=== PATIENT | male | born 1960 | race Caucasian/White ===

== ENCOUNTER 2017-06-07 13:31 | Inpatient (IN) ==
--- NOTE | 2017-06-07 13:38 | Pre-Sedation Evaluation ---
Pre-sedation evaluation - Pre-sedation checklist Date of procedure: 06/07/17 Procedure: cardiac cath +/- PCI H&P (including ROS) documented in medical record: Yes Previous reaction to sedatives/anesthetics: No Dietary Status: NPO after Midnight Airway Assessment: Patient can open mouth completely, TMJ function normal Dentition: No loose teeth or bridges Possible difficult airway: No ASA Classification *see protocol: CLASS II-Mild systemic disease Plan of Care: Pt appropriate candidate for procedure/moderate/conscious sedation
--- NOTE | 2017-06-07 13:40 | Cardiology History & Physical ---
Date of Encounter: 06/07/17 Time of Encounter: 13:30 Assessment and Plan (1) CAD (coronary artery disease) Current Visit: Yes Status: Acute The assessment and plan as outlined above was discussed with the patient and/or family members who expressed understanding and agreement. All questions were answered. Patient will continue on long-term aspirin therapy. Patient will be started on statin therapy. We will monitor on telemetry. (2) STEMI (ST elevation myocardial infarction) Current Visit: Yes Status: Acute The assessment and plan as outlined above was discussed with the patient and/or family members who expressed understanding and agreement. All questions were answered. We will proceed with emergent cardiac catheterization and possible percutaneous intervention. We will give patient unfractionated heparin. We have loaded him with Brilinta 180 mg by mouth. We will continue on long-term dual antiplatelet therapy with aspirin and Brilinta. We will check serial troponin levels. Patient will be monitored in the intensive care unit after cardiac catheterization. We will start statin therapy. Patient will continue on long-term LUKE inhibitor therapy. We will consider beta maryellen therapy. Will order echocardiogram. Qualifiers: Involved coronary artery: right coronary artery Qualified Code(s): I21.11 - ST elevation (STEMI) myocardial infarction involving right coronary artery (3) Chest pain Current Visit: Yes Status: Acute Chest pain improve with sublingual nitroglycerin. We will monitor chest pain closely. Qualifiers: Chest pain type: unspecified Qualified Code(s): R07.9 - Chest pain, unspecified (4) Shortness of breath Current Visit: Yes Status: Acute The assessment and plan as outlined above was discussed with the patient and/or family members who expressed understanding and agreement. All questions were answered. History of Present Illness Chief complaint: chest pain HPI: Mr. Madrid is a 56 year old male who presented to the [facility] emergency room with chest pain. This chest pain started at 8 AM this morning. He was rated 7 out of 10 in intensity. Current chest pain rated 2 out of 10 in intensity. He reports associated shortness of breath diaphoresis and chills. He reports tingling in both arms. Patient reports no prior history of chest pain. Electrocardiogram performed at outside hospital (reviewed by me) does show ST segment elevation inferior leads with reciprocal depression in lateral leads. Patient denies any prior cardiac history. Reports no prior cardiac testing. He does have a history of hypertension and takes lisinopril/HCTZ at home. Patient did receive an aspirin and nitroglycerin at the outside hospital. Past Med Surg Social Fam HX - Past Medical History Source: patient Medical history: hypertension Psychiatric history: depression Medications and Allergies 3 Allergy/AdvReac Type Severity Reaction Status Date / Time No Known Allergies Allergy Verified 06/07/17 13:43 All Systems Review: A 10-system review of systems was performed and is negative for pertinent findings except as documented above in the HPI. - Constitutional Constitutional: chills - Cardiovascular Cardiovascular: chest pain at rest, chest pain with exertion, dyspnea at rest, dyspnea on exertion - Psychiatric Psychiatric: depression Physical Examination Blood pressure 143/90. Heart rate 76. Resp rate 17. Afebrile General: Conversant, No Apparent Distress HEENT: Atraumatic, Normocephaly Neck: No JVD Cardiac: Reg Rate and Rhythm Lungs: Normal Breath Sounds, No Wheeze, Rales, Rhonchi Neuro: Alert and responsive, No focal deficits noted Abdomen: Soft Musculoskeletal: No Chest Wall Tenderness Extremities: No Clubbing, No Edema
[2017-06-07] MEDS ORDERED: *HR* FentaNYL (PF) 250 MCG/5 ML VIAL ONE (14:21)
[2017-06-07] MEDS ORDERED: *HR* Midazolam HCl 5 MG/5 ML VIAL IVP ONE (14:21)
[2017-06-07] MEDS ORDERED: *HR* Atropine Sulfate 1 MG/10 ML SYRINGE ONE (14:21)
[2017-06-07] MEDS ORDERED: 0.9 % Sodium Chloride 1,000 ML ONE ×2 (14:23→14:40)
[2017-06-07] MEDS ORDERED: 0.9 % Sodium Chloride 250 ML ONE (14:23)
[2017-06-07] MEDS ORDERED: *HR* Phenylephrine 10 MG/ML VIAL ONE (14:23)
[2017-06-07] MEDS ORDERED: *HR* Ticagrelor 90 MG TABLET ONE (14:26)
[2017-06-07] MEDS ORDERED: Naloxone 0.4 MG/ML INJ IVP PRN (14:30)
[2017-06-07] MEDS ORDERED: Heparin 1,000 UNITS/500 mL NS 500 ML ONE (14:40)
[2017-06-07] MEDS ORDERED: Nitroglycerin 1,000 MCG/10 ML VIAL IV ONE (14:40)
[2017-06-07] MEDS ORDERED: *HR* Heparin 10,000 UNIT/10 ML VIAL ONE (14:40)
[2017-06-07] MEDS ORDERED: Verapamil 5 MG/2 ML VIAL ONE (14:40)
[2017-06-07] MEDS ORDERED: Tirofiban 5 MG/100ML 5 MG/100 ML BAG IV ONE (14:44)
--- NOTE | 2017-06-07 14:46 | Procedure Note ---
Date of procedure: 06/07/17 (PCI/stent mid RCA with 4x20 Synergy KAROL) Pre-op diagnosis: STEMI Post-op diagnosis: same Anesthesia: IV sedation Surgeon: Chadd Crooks Condition: stable Disposition: ICU
[2017-06-07 15:09] LABS: Basophils # 0.1 K/mcL (0.0-0.2); Basophils % 0.6 %; Eosinophils % 0.3 %; Hematocrit 37.7 % (37.5-50.1); Hemoglobin 12.7 g/dL (12.9-16.9); Immature Granulocytes % 1.3 % (0-4); Lymphocytes # 2.2 K/mcL (0.6-4.6); Lymphocytes % 14.4 %; Mean Corpuscular HGB Conc 33.7 g/dL (31.6-35.5); Mean Corpuscular Hemoglobin 33.7 pg (28.0-33.3); Mean Platelet Volume 12.3 fL (9.4-12.4); Monocytes % 6.5 %; Neutrophils # 11.7 K/mcL (1.6-8.9); Nucleated Red Blood Cells 0.5 /100 WBC (0); Platelet Count 187 K/mcL (140-400); Red Blood Count 3.77 M/mcL (4.19-5.50); Red Cell Distribution Width 16.5 % (11.5-14.5); Segmented Neutrophils % 76.9 %
[2017-06-07] MEDS: 0.9 % Sodium Chloride 1,000 ML IVC SCH (15:14)
[2017-06-07 15:26] LABS: Alanine Aminotransferase 26 Units/L (0-55); Albumin 4.2 g/dL (3.5-5.0); Albumin/Globulin Ratio 1.4 (1.1-2.2); Alkaline Phosphatase 72 Units/L (38-126); Aspartate Amino Transferase 71 Units/L (5-34); BUN/Creatinine Ratio 36 (6-26); Bilirubin,Total 1.4 mg/dL (0.2-1.2); Blood Urea Nitrogen 33 mg/dL (8-26); Calcium 9.1 mg/dL (8.6-10.8); Carbon Dioxide 23 mEq/L (19-29); Chloride 104 mEq/L (98-109); Globulin 2.9 g/dL (2.4-3.5); Glucose 154 mg/dL (70-99); Osmolality,Calculated 292 (280-300); Potassium 4.1 mEq/L (3.5-4.5); Sodium 136 mEq/L (136-145); Total Protein 7.1 g/dL (6.0-8.3); eGFR For African Americans > 60 (> 60); eGFR For Non-African Americans > 60 (> 60)
[2017-06-07] MEDS: *HR* Ticagrelor 90 MG TABLET PO SCH (20:42)
[2017-06-08] MEDS ORDERED: *HR* Enoxaparin 40 MG/0.4 ML SYRINGE SQ SCH (06:00)
[2017-06-08 07:52] LABS: Basophils # 0.1 K/mcL (0.0-0.2); Basophils % 0.7 %; Eosinophils # 0.2 K/mcL (0.0-0.6); Eosinophils % 1.4 %; Hematocrit 35.5 % (37.5-50.1); Hemoglobin 11.8 g/dL (12.9-16.9); Immature Granulocytes % 1.1 % (0-4); Lymphocytes # 2.3 K/mcL (0.6-4.6); Lymphocytes % 19.5 %; Mean Corpuscular HGB Conc 33.2 g/dL (31.6-35.5); Mean Corpuscular Hemoglobin 34.4 pg (28.0-33.3); Mean Corpuscular Volume 103.5 fL (83.0-100.0); Mean Platelet Volume 12.4 fL (9.4-12.4); Monocytes # 0.8 K/mcL (0.0-1.3); Monocytes % 6.9 %; Neutrophils # 8.5 K/mcL (1.6-8.9); Nucleated Red Blood Cells 0.7 /100 WBC (0); Platelet Count 173 K/mcL (140-400); Red Blood Count 3.43 M/mcL (4.19-5.50); Red Cell Distribution Width 16.9 % (11.5-14.5); Segmented Neutrophils % 70.4 %
[2017-06-08 07:58] LABS: BUN/Creatinine Ratio 22 (6-26); Carbon Dioxide 28 mEq/L (19-29); Chloride 104 mEq/L (98-109); Glucose 103 mg/dL (70-99); Osmolality,Calculated 290 (280-300); Potassium 3.8 mEq/L (3.5-4.5); Sodium 139 mEq/L (136-145); eGFR For African Americans > 60 (> 60); eGFR For Non-African Americans > 60 (> 60)
[2017-06-08 07:59] LABS: Blood Urea Nitrogen 18 mg/dL (8-26)
[2017-06-08] MEDS: *HR* Ticagrelor 90 MG TABLET PO SCH (08:40)
[2017-06-08] MEDS ORDERED: Aspirin 81 MG TAB.CHEW PO SCH (09:00)
--- NOTE | 2017-06-08 09:07 | Cardiology Progress Note ---
Date of Encounter: 06/08/17 Time of Encounter: 09:05 Assessment and Plan (1) STEMI (ST elevation myocardial infarction) Current Visit: Yes Status: Acute STEMI s/p emergent LHC with PCE KAROL x1 to RCA. Residual stenosis in LAD - staged PCI recommended. Importance of DAPT for a minimum of one year discussed - patient voiced understanding. Increase atorvastatin to 80 mg daily. HR much better today - start low dose BB. Recommend transfer to and increase activity/echocardiogram. Patient demanding to go home. Risks discussed, including worsening condition and cardiac causes of . Recommended he take one week off from work and followup up with us this week. All questions answered. Thanks, Ryan Vyas DO, [facility] Qualifiers: Involved coronary artery: right coronary artery Qualified Code(s): I21.11 - ST elevation (STEMI) myocardial infarction involving right coronary artery (2) CAD (coronary artery disease) Current Visit: Yes Status: Acute T Qualifiers: Coronary Disease-Associated Artery/Lesion type: [place] artery [place] vs. transplanted heart: [place] heart Associated angina: with unstable angina Qualified Code(s): I25.110 - Atherosclerotic heart disease of [place] coronary artery with unstable angina pectoris (3) Presence of drug coated stent in right coronary artery Current Visit: Yes Status: Acute Discussion w patient/family: The assessment and plan as outlined above was discussed with the patient and/or family members who expressed understanding and agreement. All questions were answered. Thank you for involving us in the care of your patient. Please call with any questions. Subjective Principal diagnosis: STEMI Interval history: Patient seen and examined. Reports he did well overnight. No chest pain reported. Demanding to go home. Tolerating medications - denies any obvious side effects. Objective Vital Signs, Last 4 Hours Pulse Resp BP Pulse Ox 06/08/17 08:00 78 15 97/56 90 06/08/17 07:00 81 16 127/89 90 06/08/17 06:00 75 16 97/54 89 General: Conversant, No Apparent Distress HEENT: Atraumatic, Normocephaly, Mucus Membranes Moist Neck: No JVD, Normal carotid pulses Cardiac: Reg Rate and Rhythm, Normal S1 and S2, No Murmur Lungs: Normal Breath Sounds, No Wheeze, Rales, Rhonchi Neuro: Alert and responsive, No focal deficits noted Abdomen: Soft, Non-Tender Skin: No rashes noted on visualized skin Musculoskeletal: No Chest Wall Tenderness Extremities: No Clubbing, No Cyanosis, No Edema Results 06/08/17 06:50 06/08/17 06:50 Lab Results 06/07/17 06/07/17 06/07/17 14:55 14:55 14:55 WBC 15.2 H Hgb 12.7 L Hct 37.7 Plt Count 187 Sodium 136 Potassium 4.1 Chloride 104 Carbon Dioxide 23 BUN 33 H Creatinine 0.92 Glucose 154 H Calcium 9.1 Total Bilirubin 1.4 H AST 71 H ALT 26 Alkaline Phosphatase 72 Troponin I 8.30 H* 06/07/17 06/07/17 06/08/17 18:50 22:32 06:50 WBC 12.0 H Hgb 11.8 L Hct 35.5 L Plt Count 173 Sodium Potassium Chloride Carbon Dioxide BUN Creatinine Glucose Calcium Total Bilirubin AST ALT Alkaline Phosphatase Troponin I > 50.00 H* > 50.00 H* 06/08/17 06:50 WBC Hgb Hct Plt Count Sodium 139 Potassium 3.8 Chloride 104 Carbon Dioxide 28 BUN 18 D Creatinine 0.82 Glucose 103 H Calcium 9.0 Total Bilirubin AST ALT Alkaline Phosphatase Troponin I - Imaging and Cardiology Cardiac cath: report reviewed - EKG Interpretation EKG results cardiology: personally reviewed Consult Discharge Plan - Plan Referrals: [facility] [Primary Care Provider] -
[2017-06-08] MEDS ORDERED: Metoprolol XL (24 HR) Succ 25 MG TAB.ER.24H PO SCH (09:15)
--- NOTE | 2017-06-08 09:29 | Discharge Summary ---
Date of Encounter: 06/08/17 Time of Encounter: 09:27 - Discharge Diagnosis (1) STEMI (ST elevation myocardial infarction) Priority: Primary Status: Acute Comments: STEMI presentation with emergentt C with KAROL to RCA. - Discharge Medications Prescriptions: Atorvastatin [Lipitor] 80 mg PO HS #30 tab Metoprolol XL (24 HR) Succ [Toprol Xl] 25 mg PO DAILY #30 tab Ticagrelor [Brilinta] 90 mg PO BID #30 tab Home Medications: Escitalopram [Lexapro] 20 mg PO DAILY 06/07/17 [History] Aspirin 81 mg PO DAILY 06/08/17 [Rx] Atorvastatin [Lipitor] 80 mg PO HS #30 tab 06/08/17 [Rx] Metoprolol XL (24 HR) Succ [Toprol Xl] 25 mg PO DAILY #30 tab 06/08/17 [Rx] Ticagrelor [Brilinta] 90 mg PO BID #30 tab 06/08/17 [Rx] Allergies/Adverse Reactions: 3 Allergy/AdvReac Type Severity Reaction Status Date / Time No Known Allergies Allergy Verified 06/07/17 13:43 Procedures/tests Complete & Pending: Procedures Performed prior 72 hours Category Date Time Status CL Cardiac Catheterization [CL] Stat [employer] 06/07/17 13:44 Ordered ECG 12 lead ECG [ECG] Routine Y 06/07/17 14:36 Ordered ECG 12 lead ECG [ECG] Routine Y 06/08/17 07:00 Ordered ECG 12 lead ECG [ECG] Stat Y 06/07/17 14:36 Ordered EV echocardiogram Routine Y 06/07/17 14:36 Ordered Date of admission: 06/07/17 14:14 Primary care physician: [facility] Consults: 06/07/17 14:36 Consult to Cardiac Rehabilitation-Phase1 [CONS] Routine Comment: Reason for Consult: AMI Call Completed: Yes Consult to Nurse Navigator [CONS] Routine Comment: 06/07/17 14:38 Consult to Cardiac Rehabilitation-Phase1 [CONS] Routine Comment: Reason for Consult: post op cath Call Completed: Yes Discharging clinician: Beth Monzon Anticipated date of discharge: 06/08/17 - Patient Status Disposition: Home, Self-Care Condition: Fair Functional capacity at discharge: independent ambulation Overall status at discharge: patient is progressing back to baseline - Discharge Instructions Follow Up With: [facility] [Primary Care Provider] - Additional Instructions: RISK FACTORS: STOP SMOKING: If you smoke, STOP. Smoking or tobacco use significantly increases your risk of heart disease because nicotine causes the arteries to narrow or constrict. It also causes fats to stick to the artery. Your chances of having a heart attack are greatly increased if you continue to smoke. For more information, call the education line for smoking cessation 4-512-GESQTXD EAT A LOW FAT/CHOLESTEROL/SODIUM DIET: This diet may help reduce your chances of having a heart attack. LIFTING: With affected extremity: Avoid bending, pushing off and lifting more than 2 pounds for 24 hours The following 48 hours, avoid lifting anything more than 5 pounds Avoid strenuous activity or repetitive motions ACTIVITY: You may walk or climb stairs as tolerated You can resume sexual activity as tolerated In general, you are encouraged to engage in a minimum of 30 minutes or more of moderate intensity physical activity, such as brisk walking, daily or at least 3 -4 times weekly BATHING Do not submerge the site into water (bath tub, hot tub, swimming pool, dishes) for 1 week. This can be a source for infection into the blood stream. You may shower after 24 hours SITE CARE: After 24 hours, you may remove the dressing and leave the site open to air. Keep the site clean and dry. Clean gently and pat dry. You can expect bruising and tenderness that gradually resolve within a week or two. Return to work as instructed per your physician Resume driving as instructed per physician Keep all scheduled follow up appointments Resume medications as instructed IMPORTANT: If prescribed a Platelet Aggregation Inhibitor such as, Plavix, Brilinta or Effient: Duration of therapy is minimum one year These medications are often used in combination with Aspirin in prevention of future heart attacks Never discontinue unless consult with your Motor Setter STROKE (CVA) Risk factors for a stroke are: Age, cigarette smoking, diabetes, excessive alcohol consumption, family history, high blood pressure, overweight, physical inactivity, prior stroke, heart attack, diagnosis of carotid artery stenosis or other artery disease. Warning signs: Sudden numbness or weakness of the face, arm or leg; especially on one side of the body, sudden confusion, trouble speaking or understanding, sudden trouble seeing in one or both eyes, sudden trouble walking, dizziness, loss of balance or coordination, sudden severe headache with no cause. Call 911 or go to the Emergency Room. CONGESTIVE HEART FAILURE: If you have been diagnosed with Congestive Heart Failure (CHF) and your symptoms return, make an appointment with your physician Weigh yourself daily. Notify your physician if you have a weight gain of two or more pounds in one day or five or more pounds in one week. If you experience any difficulty breathing, please call 911 BLEEDING: Although the risk of bleeding is minimal, it can happen. If you have any bleeding from the site, apply firm pressure above the puncture site for 10-15 minutes. If the bleeding does not stop, continue manual pressure and call 911 Contact [facility] ( ) if: You develop a fever greater than 101 degrees Fahrenheit Your site becomes reddened or has any drainage You have an increase in pain or burning at the site or if a large knot forms at the site. If you experience chest pain, shortness of breath, dizziness, or extreme tiredness, stop the activity and rest. Please notify [facility] office if you experience any of these symptoms and they are not relieved by rest please call 911! - Diet and Activity Activity: increase activity as tolerated Diet: low fat, low cholesterol, low salt diet - Hospital Course Hospital course: Mr. Madrid is a 56 year old male Who presented to [facility] with chest pain. 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 Patient received drug eluding stent to RCA. Severe LAD disease with recommendatiosn for staged PCI. Patient required temporary dopamine support for BP and HR. BP and HR stable now off dopamine. Patient educated on dual antiplatelet therapy uninterrupted for at least one year. Brilinta card given to pateint. Patient states understanding. On asa, statin, beta maryellen, and brilinta. Patient educated on importance of follow up regarding need for staged PCI and risks of not following up such as [place] or . Patient states understanding. Right radial access site without hematoma or ecchymosis. Right radial access site care education given to patient. Patient's BP 90-100s systolic. Will continue beta maryellen and will stop patient's don inhibitor for now. LVEF 50-55%. Will re -evaluate in outpatient setting regarding addition of don inhibitor. Patient is being discharged today, against our advice. Patient is adament he is going home. Follow up is being scheduled follow up with cardiology clinic. - Time Spent with Patient Total time spent providing and/or coordinating discharge services: Less than 30 minutes Physical Examination Vital Signs, Last 4 Hours Pulse Resp BP Pulse Ox 06/08/17 08:00 78 15 97/56 90 06/08/17 07:00 81 16 127/89 90 06/08/17 06:00 75 16 97/54 89 General: Conversant, No Apparent Distress HEENT: Atraumatic, Normocephaly, Mucus Membranes Moist Neck: No JVD, Normal carotid pulses Cardiac: Reg Rate and Rhythm, Normal S1 and S2, No Murmur Lungs: Normal Breath Sounds, No Wheeze, Rales, Rhonchi Neuro: Alert and responsive, No focal deficits noted Abdomen: Soft, Non-Tender Skin: No rashes noted on visualized skin, Other (Right radial access site without hematoma or ecchymosis. ) Musculoskeletal: No Chest Wall Tenderness Extremities: No Clubbing, No Cyanosis, No Edema, Normal Pulses
[2017-06-08 13:08] VITALS: BP 110/76
[2017-06-08] MEDS: 0.9 % Sodium Chloride 1,000 ML IVC SCH (13:08)
--- NOTE | 2017-06-08 13:17 | Event Note ---
Date of Encounter: 06/08/17 Time of Encounter: 13:15 - Cardiology Event Note Patient educated to call ICU if Brilinta is unaffordable for pateint with his insurance. [employer] G educated to call cardiology if patient reports brilinta is unaffordable. Pateint educated and stressed not to miss any doses of asa or brilinta with the risks of missing medication being [place] or . Pateint states understanding.
--- NOTE | 2017-06-09 08:30 | Invasive Diagnostic Lab Proc ---
Name: Rafy Madrid Date of Study: 06/07/2017 Date: 1960 Ht: 72.0in Medical Record#: [id number] Age: 56 Wt: 238.00lb Gender: Male BSA: 2.29 Order #: [id number] BMI: 32.28 Physicians Procedure Physician: Chadd Crooks MD Referring MD: [facility] Referring MD: Staff Name Position Time In Tabby Stephen RT (R) Scrub Maverick Mathew RN Newspaper Photo Editor Bhavana Bush RN Monitor Indications Indication STEMI Procedures Performed Procedure PRQ CARD REVASC AK 1 VSL L HRT ARTERY/VENTRICLE ANGIO Pre-Procedure Checklist Informed consent is complete signed and on chart. H&P is on chart. ID band is on and ID verified with patient. Patient NPO for procedure The procedure was described for the patient and questions were answered. Blood Pressure: 126/81 ECG is on chart. Rhythm: Sinus Bradycardia Plan of Care Patient will tolerate the procedure without complications. Adequate level of comfort will be maintained. Hemodynamics will remain stable Patient will recover from procedure without complications. Respiratory function will be maintained. Cardiac rhythm will remain stable. Patient temperature will be maintained. Patient and/or family have verbalized understanding of the procedure. Patient Education Chief Complaint/Reason for Test: Cardiac Cath Developmental Category: Adult (18-64 years) Developmentally Appropriate for Age: Yes Learning Barriers: None Education Needs: Procedure Education Method: Verbal Information Taught: Cardiac Cath Educational Evaluation: Able to repeat information Intravenous Access Time IV Size Location DC'd Fluid/Drip Rate Units RN 01:28 PM 20g 1 /" Patent On Arrival Lt Antecubital 0.9NaCl 25 ml/hr Maverick Mathew RN Allergies No Known Allergies Vital Signs Time BP (mmHg) HR (bpm) O2 Sat. RR (bpm) LOC 01:58 PM / % 5 = Fully awake and oriented or at pre-proc level 01:58 PM / % 5 = Fully awake and oriented or at pre-proc level 02:03 PM 85 / 40 74 89 % 20 02:04 PM 88 / 38 70 89 % 18 02:07 PM 79 / 36 70 90 % 17 02:08 PM 75 / 44 81 89 % 17 02:10 PM 81 / 33 75 90 % 18 02:13 PM 84 / 40 74 91 % 18 02:17 PM 78 / 35 74 90 % 41 02:18 PM 72 / 34 74 91 % 13 02:19 PM 76 / 35 76 92 % 19 02:21 PM 78 / 41 73 92 % 18 01:48 PM 126 / 81 87 90 % 18 01:53 PM 132 / 72 79 92 % 19 01:58 PM 142 / 76 82 92 % 17 02:02 PM 74 / 38 50 89 % 26 02:23 PM 80 / 42 71 91 % 18 02:28 PM 85 / 50 72 91 % 24 Procedural Medications Time Medication Dose Units Method Given By 01:50 PM Oxygen 6 L/min nasal cannula Maverick Mathew RN 01:46 PM Lidocaine 2% 10 ml Subcutaneous 01:48 PM Heparin 4000 units Nitroglycerin 200 mcg Verapamil 2.5 mg Intraarterial Chadd crooks 01:44 PM Versed 2 mg Intravenous Maverick Mathew RN 01:44 PM Fentanyl 50 mcg Intravenous Maverick Mathew RN 01:44 PM Brilinta 180 mg Orally Maverick Mathew RN 01:59 PM Heparin 3000 units Intravenous Maverick Mathew RN 02:01 PM Atropine 0.5 mg Intravenous Maverick Mathew RN 02:04 PM Neosynephrine 50 mcg Intravenous Maverick Mathew RN 02:04 PM Aggrastat Bolus: 54 ml Orally Maverick Mathew RN 02:11 PM Neosynephrine 100 mcg Intravenous Maverick Mathew RN 02:14 PM Dopamine 5 mcg/kg/min Intravenous Maevrick Mathew RN 02:22 PM Dopamine 7.5 mcg/kg/min Intravenous Maverick Mathew RN 02:30 PM Dopamine 10 mcg/kg/min Intravenous Maverick Mathew RN ASA Classification: CLASS II- Mild systemic disease (i.e. well-controlled diabetes, hypertension, asthma, cigarette smoking) Rhonda Score Preprocedure Postprocedure Activity 2- Moves 4 extremities sustained head lift Activity 2- Moves 4 extremities sustained head lift Circulation 2- SBP +/= 20 points of pre-anesthetic level Circulation 2- SBP +/= 20 points of pre-anesthetic level Consciousness 2- Awake and alert oriented x 3 Consciousness 2- Awake and alert oriented x 3 O2 Saturation 1- Needs O2 inhalation to maintain O2 saturation of 90% O2 Saturation 1- Needs O2 inhalation to maintain O2 saturation of 90% Respiratory 2- Able to deep breathe and cough well Respiratory 2- Able to deep breathe and cough well Total Score 9 Total Score 9 Contrast Agent: Isovue Diagnostic Contrast: 103 ml Total Contrast: 103 ml Fluoro Dose: 1020 mGy Activated Clotting Time Time Seconds to Clot 01:59 PM 204 Procedure Log Time Note Enter By 01:28 PM Pt arrived to cath laboratory technician 2 at 14:28, no labs available at this time csmith 01:28 PM patient arrived to warehouse general laborer csmith 01:35 PM Time out performed according to hospital policy csmith 01:42 PM Time: 13:42 Oxygen on at 6 L/min per nasal cannula by Maverick Mathew RN csmith :44 PM Time: 13:44 Brilinta 180 mg Orally Given by Maverick Mathew RN csmith :44 PM Time: 13:44 Versed 2 mg Intravenous Given by Maverick Mathew RN csmith :44 PM Time: 13:44 Fentanyl 50 mcg Intravenous Given by Maverick Mathew RN csmith 01:46 PM Time: 13:46 10 ml Lidocaine 2% to right radial Subcutaneous Given by csmith 01:47 PM Access obtained by percutaneous puncture. 6Fr 10cm Terumo Glidesheath sheath placed in right Radial artery. [id number] csmith 01:47 PM Vitals capture started with the following parameters, Patient=Adult, Interval=5 min, Initial Rcihgohv=176 mmHg, Deflation Rate=5 mmHg, Cuff placed on Right Arm 01:47 PM CathStat 01:47 PM [ Start or Stop Vital ] 01:48 PM 5Fr FL 3.5 catheter inserted over the wire DN csmith 01:48 PM Time: 13:48 Patient given 4,000 units Heparin, 200 mcg Nitroglycerin, and 2.5 mg Verapamil Intraarterial by Chadd crooks csmith 01:48 PM HR=87 bpm, HYGA=653/81 mmhg, SpO2=90 %, Resp=18 B/min 01:49 PM Pressure channel 3 zero failed. 01:49 PM Pressure channel 3 zeroed. 01:50 PM Pressure channel 3 zeroed. 01:50 PM Recorded Pressure: LV, HR=93, Condition=Condition 1 (Left Ventricle) LV 114/11/12 01:51 PM Recorded Pressure: LV, Ao, HR=91, Condition=Condition 1 (Left Ventricle) LV 111/11/13, (Aorta) Ao 103/87/95 01:51 PM Catheter selectively placed in left ventricle csmith 01:51 PM catheter pulled back from LV csmith 01:53 PM LCA angiography performed in multiple views. csmith 01:53 PM HR=79 bpm, XOKH=514/72 mmhg, SpO2=92.0 %, Resp=19 B/min, Comment=SR 01:55 PM Catheter removed csmith 01:55 PM 6Fr JR 4 Runway guide catheter was used to cannulate the PCI vessel successfully. reused? No csmith 01:57 PM Recorded Pressure: Ao, HR=77, Condition=Condition 1 (Aorta) Ao 120/80/98 01:58 PM Inflation device was opened. csmith 01:58 PM .014 Kinetix 185cm guide wire across target lesion- successful. reused? No csmith 01:58 PM Time: 13:58 Patient comfortable and pain free: Yes csmith :58 PM Time: 13:58LOC: 5 = Fully awake and oriented or at pre-proc level csmith :58 PM HR=82 bpm, KQXJ=134/76 mmhg, SpO2=92.0 %, Resp=17 B/min, Comment=SR 01:59 PM 2.5 mm x 12 mm Emerge Monorail balloon across target lesion- successful. reused? No csmith :59 PM At 13:59 the ACT was 204 seconds. csmith 01:59 PM Time: 13:59 Heparin 3000 units Intravenous Given by Maverick Mathew RN csmith 02:00 PM Balloon inflated @ 10 digna for 20 seconds csmith 02:01 PM Time: 14:01 Atropine .5 mg Intravenous Given by Maverick Mathew RN csmith 02:01 PM Balloon inflated @ 14 digna for 6 seconds csmith 02:02 PM NIBP STAT measurement started. 02:02 PM HR=50 bpm, NIBP=74/38 mmhg, SpO2=89 %, Resp=26 B/min 02:03 PM HR=74 bpm, NIBP=85/40 mmhg, SpO2=89 %, Resp=20 B/min 02:04 PM Balloon catheter removed intact. csmith 02:04 PM Time: 14:04 Neosynephrine 50 mcg Intravenous Given by Maverick Mathew RN csmith 02:04 PM NIBP STAT measurement started. 02:04 PM Time: 14:04 Aggrastat Bolus: 54 ml Orally Given by Maverick Mathew RN Coleman pump csmith 02:04 PM HR=70 bpm, NIBP=88/38 mmhg, SpO2=89 %, Resp=18 B/min 02:05 PM 4.0mm x 20mm Synergy drug-eluting stent across target lesion- successful Lot #[id number] csmith 02:05 PM Stent deployed @ 16 digna for 20 seconds csmith 02:05 PM Stent delivery system removed intact. csmith 02:06 PM NIBP STAT measurement started. 02:07 PM HR=70 bpm, NIBP=79/36 mmhg, SpO2=90 %, Resp=17 B/min 02:07 PM 5.0 mm x 8mm NC Emerge balloon across target lesion- successful. reused? No csmith 02:08 PM NIBP STAT measurement started. 02:08 PM HR=81 bpm, NIBP=75/44 mmhg, SpO2=89.0 %, Resp=17 B/min, Comment=SR 02:08 PM Balloon inflated @ 10 digna for 14 seconds csmith 02:09 PM Balloon inflated @ 8 digna for 4 seconds csmith 02:09 PM Balloon inflated @ 14 digna for 8 seconds csmith 02:10 PM Balloon inflated @ 8 digna for 6 seconds csmith 02:10 PM NIBP STAT measurement started. 02:10 PM Balloon catheter removed intact. csmith 02:10 PM HR=75 bpm, NIBP=81/33 mmhg, SpO2=90.0 %, Resp=18 B/min, Comment=SR 02:11 PM Guide wire removed intact. csmith 02:11 PM Guide catheter removed intact. csmith 02:11 PM Time: 14:11 Neosynephrine 100 mcg Intravenous Given by Maverick Mathew RN csmith 02:11 PM Recorded Pressure: Ao, HR=72, Condition=Condition 1 (Aorta) Ao 70/48/55 02:13 PM NIBP STAT measurement started. 02:13 PM HR=74 bpm, NIBP=84/40 mmhg, SpO2=91.0 %, Resp=18 B/min, Comment=SR 02:13 PM Time: 13:58 Patient comfortable and pain free: Yes csmith 02:14 PM Time: 13:58LOC: 5 = Fully awake and oriented or at pre-proc level csmith 02:14 PM Time: 14:14 Dopamine 5 mcg/kg/min Intravenous Given by Maverick Mathew RN Coleman pump csmith 02:17 PM Procedure completed at 14:17 ejohnson 02:17 PM Isovue 370 - 200ml,1 Bottle(s) used. ejohnson 02:17 PM NIBP STAT measurement started. 02:17 PM Site status No bleeding/hematoma - Rt Wrist as reported by Tabby Stephen RT (R) at 14:17 ejohnson 02:17 PM Sign out completed: Radiation Dose 1019.75 mGy Fluoro Time: 6.8 Isovue 370 - 200ml contrast 103 ml given by Chadd Crooks MD. Complications: NoneCardiac Rehab Consult needed: YesConfirmed administered medications: Yes ejohnson 02:17 PM Arterial sheath pulled, Vasc Band closure device used and was Successful S/N. ejohnson 02:17 PM HR=74 bpm, NIBP=78/35 mmhg, SpO2=90 %, Resp=41 B/min 02:18 PM 10 ml air in Vasc Band. ejohnson 02:18 PM HR=74 bpm, NIBP=72/34 mmhg, SpO2=91 %, Resp=13 B/min 02:19 PM NIBP STAT measurement started. 02:19 PM HR=76 bpm, NIBP=76/35 mmhg, SpO2=92.0 %, Resp=19 B/min 02:20 PM NIBP STAT measurement started. 02:21 PM HR=73 bpm, NIBP=78/41 mmhg, SpO2=92.0 %, Resp=18 B/min, Comment=SR 02:22 PM Time: 14:22 Dopamine 7.5 mcg/kg/min Intravenous Given by Maverick Mathew RN Coleman pump ejohnson 02:23 PM HR=71 bpm, NIBP=80/42 mmhg, SpO2=91.0 %, Resp=18 B/min, Comment=SR 02:28 PM NIBP STAT measurement started. 02:28 PM Patient out of room: 14:28 ejohnson 02:28 PM Post Blood Pressure 85/50 ejohnson 02:28 PM no labns are available at this time ejohnson 02:28 PM HR=72 bpm, NIBP=85/50 mmhg, SpO2=91 %, Resp=24 B/min 02:28 PM Report given to Saida MCKNIGHT Pt taken to ICU Room #1. 14:28 ejohnson 02:30 PM Time: 14:30 Dopamine 10 mcg/kg/min Intravenous Given by Maverick Mathew RN ejohsavage 02:30 PM Coronary Dominance: right [email or web address] 02:31 PM Lesion found in Proximal LAD. Pre Stenosis: 60 Pre SHANA Flow: 3: Complete and Brisk Flow/Perfusion ejohnson 02:31 PM Lesion found in Proximal RCA. Pre Stenosis: 20 Pre SHANA Flow: 3: Complete and Brisk Flow/Perfusion ejohnson 02:31 PM Lesion found in Mid RCA. Pre Stenosis: 100 Pre SHANA Flow: 0: No Flow/No perfusion ejohnson 02:32 PM Lesion found in Distal RCA. Pre Stenosis: 20 Pre SHANA Flow: 3: Complete and Brisk Flow/Perfusion ejohnson 02:32 PM Lesion found in Mid LAD. Pre Stenosis: 70 Pre SHANA Flow: 3: Complete and Brisk Flow/Perfusion ejohnson 02:33 PM Vitals capture stopped. 02:34 PM Lesion found in Distal LAD. Pre Stenosis: 20 Pre SHANA Flow: 3: Complete and Brisk Flow/Perfusion ejohnson 02:34 PM Lesion found in Proximal Circumflex. Pre Stenosis: 30 Pre SHANA Flow: 3: Complete and Brisk Flow/Perfusion ejohnson 02:35 PM Lesion found in 1st Marginal. Pre Stenosis: 20 Pre SHANA Flow: 3: Complete and Brisk Flow/Perfusion ejohnson 02:35 PM Proximal Left Anterior Descending Coronary Artery with 60% stenosis. ejohnson 02:36 PM Mid/Distal Left Anterior Descending Coronary Artery and diagonal branches with 75% stenosis. ejohnson 02:37 PM Circumflex, Obtuse Marginal, Left Posterior Descending, and Left Posterolateral Coronary Arteries with 20 % stenosis. ejohnson 02:45 PM Post ECG NSR ejohnson 02:47 PM Information taught Cardiac Cath, PCI, and Vasc Band ejohnson 02:47 PM Education needs Procedure, Plan of Care, and Responsibilities of Patient in Care ejohnson 02:47 PM Learning barriers :None ejohnson 02:47 PM Education Methods Verbal ejohnson 02:47 PM Education evaluation Able to repeat information ejohnson 02:48 PM Plavix, Effient or Brilinta given Yes ejohnson 02:48 PM Delay to floor No ejohnson 02:48 PM Family placed in consult room. ejohnson 02:48 PM Complications: None ejohnson Complications Complication None Hemodynamics Pressures Site Systolic/A Wave Diastolic/V Wave Mean LV 114 11 12 LV 111 11 13 AO 103 87 95 AO 120 80 98 AO 70 48 55 Post Procedure Information Blood Pressure: 88/38 mmHg Rhythm: NSR Post procedural instructions were given Closure Device Time Device Success/Fail 06/07/2017 2:17:00 PM Mechanical Compression Site Checks Time Location Status Staff Sheath In? Note 02:17 PM Rt Wrist No bleeding/hematoma Tabby Stephen RT (R) Pulses Time Site Pre-Procedure Post-Procedure Note 06/07/2017 1:28:00 PM Rt Radial 2+ 06/07/2017 2:30:00 PM Rt Radial 1+ Updated by Bhavana Bush RN on 06/07/2017 2:59:36 PM Bhavana Bush RN electronically signed on 06/07/2017 2:59:59 PM with status of Final
--- NOTE | 2017-06-09 14:27 | Invasive Diagnostic Lab Proc ---
Name: Rafy Madrid Date of Study: 06/07/2017 Date: 1960 Ht: 72.0in Medical Record#: [id number] Age: 56 Wt: 238.00lb Gender: Male BSA: 2.29 Order #: [id number] BMI: 32.28 Physicians Procedure Physician: Chadd Crooks MD Referring MD: [facility] Referring MD: Staff Name Position Time In Phoebe Stephena RT (R) Scrub Maverick Mathew RN Semiconductor Manufacturing Technician Bhavana Bush RN Monitor Indications Indication STEMI Procedures Performed Procedure PRQ CARD REVASC AZ 1 VSL L HRT ARTERY/VENTRICLE ANGIO MOD SED OTH PHYS/QHP 5/>YRS MOD SED OTHER PHYS/QHP EA Pre-Procedure Checklist Informed consent is complete signed and on chart. H&P is on chart. ID band is on and ID verified with patient. Patient NPO for procedure The procedure was described for the patient and questions were answered. Blood Pressure: 126/81 ECG is on chart. Rhythm: Sinus Bradycardia Plan of Care Patient will tolerate the procedure without complications. Adequate level of comfort will be maintained. Hemodynamics will remain stable Patient will recover from procedure without complications. Respiratory function will be maintained. Cardiac rhythm will remain stable. Patient temperature will be maintained. Patient and/or family have verbalized understanding of the procedure. Patient Education Chief Complaint/Reason for Test: Cardiac Cath Developmental Category: Adult (18-64 years) Developmentally Appropriate for Age: Yes Learning Barriers: None Education Needs: Procedure Education Method: Verbal Information Taught: Cardiac Cath Educational Evaluation: Able to repeat information Intravenous Access Time IV Size Location DC'd Fluid/Drip Rate Units RN 01:28 PM 20g 1 10/16" Patent On Arrival Lt Antecubital 0.9NaCl 25 ml/hr Maverick Mathew RN Allergies No Known Allergies Vital Signs Time BP (mmHg) HR (bpm) O2 Sat. RR (bpm) LOC 01:58 PM / % 5 = Fully awake and oriented or at pre-proc level 01:58 PM / % 5 = Fully awake and oriented or at pre-proc level 02:03 PM 85 / 40 74 89 % 20 02:04 PM 88 / 38 70 89 % 18 02:07 PM 79 / 36 70 90 % 17 02:08 PM 75 / 44 81 89 % 17 02:10 PM 81 / 33 75 90 % 18 02:13 PM 84 / 40 74 91 % 18 02:17 PM 78 / 35 74 90 % 41 02:18 PM 72 / 34 74 91 % 13 02:19 PM 76 / 35 76 92 % 19 02:21 PM 78 / 41 73 92 % 18 01:48 PM 126 / 81 87 90 % 18 01:53 PM 132 / 72 79 92 % 19 01:58 PM 142 / 76 82 92 % 17 02:02 PM 74 / 38 50 89 % 26 02:23 PM 80 / 42 71 91 % 18 02:28 PM 85 / 50 72 91 % 24 Procedural Medications Time Medication Dose Units Method Given By 01:50 PM Oxygen 6 L/min nasal cannula Maverick Mathew RN 01:46 PM Lidocaine 2% 10 ml Subcutaneous 01:48 PM Heparin 4000 units Nitroglycerin 200 mcg Verapamil 2.5 mg Intraarterial Chadd crooks 01:44 PM Versed 2 mg Intravenous Maverick Mathew RN 01:44 PM Fentanyl 50 mcg Intravenous Maverick Mathew RN 01:44 PM Brilinta 180 mg Orally Maverick Mathew RN 01:59 PM Heparin 3000 units Intravenous Maverick Mathew RN 02:01 PM Atropine 0.5 mg Intravenous Maverick Mathew RN 02:04 PM Neosynephrine 50 mcg Intravenous Maverick Mathew RN 02:04 PM Aggrastat Bolus: 54 ml Orally Maverick Mathew RN 02:11 PM Neosynephrine 100 mcg Intravenous Maverick Mathew RN 02:14 PM Dopamine 5 mcg/kg/min Intravenous Maverick Mathew RN 02:22 PM Dopamine 7.5 mcg/kg/min Intravenous Maverick Mathew RN 02:30 PM Dopamine 10 mcg/kg/min Intravenous Maverick Mathew RN ASA Classification: CLASS II- Mild systemic disease (i.e. well-controlled diabetes, hypertension, asthma, cigarette smoking) Rhonda Score Preprocedure Postprocedure Activity 2- Moves 4 extremities sustained head lift Activity 2- Moves 4 extremities sustained head lift Circulation 2- SBP +/= 20 points of pre-anesthetic level Circulation 2- SBP +/= 20 points of pre-anesthetic level Consciousness 2- Awake and alert oriented x 3 Consciousness 2- Awake and alert oriented x 3 O2 Saturation 1- Needs O2 inhalation to maintain O2 saturation of 90% O2 Saturation 1- Needs O2 inhalation to maintain O2 saturation of 90% Respiratory 2- Able to deep breathe and cough well Respiratory 2- Able to deep breathe and cough well Total Score 9 Total Score 9 Contrast Agent: Isovue Diagnostic Contrast: 103 ml Total Contrast: 103 ml Fluoro Dose: 1020 mGy Activated Clotting Time Time Seconds to Clot 01:59 PM 204 Procedure Log Time Note Enter By 01:28 PM Pt arrived to label printer 2 at 13:28, no labs available at this time csmith 01:28 PM patient arrived to laboratory chemist csmith 01:35 PM Time out performed according to hospital policy csmith 01:42 PM Time: 13:42 Oxygen on at 6 L/min per nasal cannula by Maverick Mathew RN csmith 01:44 PM Time: 13:44 Brilinta 180 mg Orally Given by Maverick Mathew RN csmith 01:44 PM Time: 13:44 Versed 2 mg Intravenous Given by Maverick Mathew RN csmith :44 PM Time: 13:44 Fentanyl 50 mcg Intravenous Given by Maverick Mathew RN csmith 01:46 PM Time: 13:46 10 ml Lidocaine 2% to right radial Subcutaneous Given by csmith 01:47 PM Access obtained by percutaneous puncture. 6Fr 10cm Terumo Glidesheath sheath placed in right Radial artery. [id number] csmith 01:47 PM Vitals capture started with the following parameters, Patient=Adult, Interval=5 min, Initial Fnnloglx=174 mmHg, Deflation Rate=5 mmHg, Cuff placed on Right Arm 01:47 PM CathStat 01:47 PM [ Start or Stop Vital ] 01:48 PM 5Fr FL 3.5 catheter inserted over the wire DNC csmith 01:48 PM Time: 13:48 Patient given 4,000 units Heparin, 200 mcg Nitroglycerin, and 2.5 mg Verapamil Intraarterial by Chadd crooks csmith 01:48 PM HR=87 bpm, ISNJ=371/81 mmhg, SpO2=90 %, Resp=18 B/min 01:49 PM Pressure channel 3 zero failed. 01:49 PM Pressure channel 3 zeroed. 01:50 PM Pressure channel 3 zeroed. 01:50 PM Recorded Pressure: LV, HR=93, Condition=Condition 1 (Left Ventricle) LV 114/11/12 01:51 PM Recorded Pressure: LV, Ao, HR=91, Condition=Condition 1 (Left Ventricle) LV 111/11/13, (Aorta) Ao 103/87/95 01:51 PM Catheter selectively placed in left ventricle csmith 01:51 PM catheter pulled back from LV csmith 01:53 PM LCA angiography performed in multiple views. csmith 01:53 PM HR=79 bpm, PTDO=384/72 mmhg, SpO2=92.0 %, Resp=19 B/min, Comment=SR 01:55 PM Catheter removed csmith 01:55 PM 6Fr JR 4 Runway guide catheter was used to cannulate the PCI vessel successfully. reused? No csmith 01:57 PM Recorded Pressure: Ao, HR=77, Condition=Condition 1 (Aorta) Ao 120/80/98 01:58 PM Inflation device was opened. csmith 01:58 PM .014 Kinetix 185cm guide wire across target lesion- successful. reused? No csmith 01:58 PM Time: 13:58 Patient comfortable and pain free: Yes csmith :58 PM Time: 13:58LOC: 5 = Fully awake and oriented or at pre-proc level csmith 01:58 PM HR=82 bpm, MZBA=044/76 mmhg, SpO2=92.0 %, Resp=17 B/min, Comment=SR 01:59 PM 2.5 mm x 12 mm Emerge Monorail balloon across target lesion- successful. reused? No csmith 01:59 PM At 13:59 the ACT was 204 seconds. csmith 01:59 PM Time: 13:59 Heparin 3000 units Intravenous Given by Maverick Mathew RN csmith 02:00 PM Balloon inflated @ 10 digna for 20 seconds csmith 02:01 PM Time: 14:01 Atropine .5 mg Intravenous Given by Maverick Mathew RN csmith 02:01 PM Balloon inflated @ 14 digna for 6 seconds csmith 02:02 PM NIBP STAT measurement started. 02:02 PM HR=50 bpm, NIBP=74/38 mmhg, SpO2=89 %, Resp=26 B/min 02:03 PM HR=74 bpm, NIBP=85/40 mmhg, SpO2=89 %, Resp=20 B/min 02:04 PM Balloon catheter removed intact. csmith 02:04 PM Time: 14:04 Neosynephrine 50 mcg Intravenous Given by Maverick Mathew RN csmith 02:04 PM NIBP STAT measurement started. 02:04 PM Time: 14:04 Aggrastat Bolus: 54 ml Orally Given by Maverick Mathew RN Coleman pump csmith 02:04 PM HR=70 bpm, NIBP=88/38 mmhg, SpO2=89 %, Resp=18 B/min 02:05 PM 4.0mm x 20mm Synergy drug-eluting stent across target lesion- successful Lot #[id number] csmith 02:05 PM Stent deployed @ 16 digna for 20 seconds csmith 02:05 PM Stent delivery system removed intact. csmith 02:06 PM NIBP STAT measurement started. 02:07 PM HR=70 bpm, NIBP=79/36 mmhg, SpO2=90 %, Resp=17 B/min 02:07 PM 5.0 mm x 8mm NC Emerge balloon across target lesion- successful. reused? No csmith 02:08 PM NIBP STAT measurement started. 02:08 PM HR=81 bpm, NIBP=75/44 mmhg, SpO2=89.0 %, Resp=17 B/min, Comment=SR 02:08 PM Balloon inflated @ 10 digna for 14 seconds csmith 02:09 PM Balloon inflated @ 8 digna for 4 seconds csmith 02:09 PM Balloon inflated @ 14 digna for 8 seconds csmith 02:10 PM Balloon inflated @ 8 digna for 6 seconds csmith 02:10 PM NIBP STAT measurement started. 02:10 PM Balloon catheter removed intact. csmith 02:10 PM HR=75 bpm, NIBP=81/33 mmhg, SpO2=90.0 %, Resp=18 B/min, Comment=SR 02:11 PM Guide wire removed intact. csmith 02:11 PM Guide catheter removed intact. csmith 02:11 PM Time: 14:11 Neosynephrine 100 mcg Intravenous Given by Maverick Mathew RN csmith 02:11 PM Recorded Pressure: Ao, HR=72, Condition=Condition 1 (Aorta) Ao 70/48/55 02:13 PM NIBP STAT measurement started. 02:13 PM HR=74 bpm, NIBP=84/40 mmhg, SpO2=91.0 %, Resp=18 B/min, Comment=SR 02:13 PM Time: 13:58 Patient comfortable and pain free: Yes csmith 02:14 PM Time: 13:58LOC: 5 = Fully awake and oriented or at pre-proc level csmith 02:14 PM Time: 14:14 Dopamine 5 mcg/kg/min Intravenous Given by Maverick Mathew RN Coleman pump csmith 02:17 PM Procedure completed at 14:17 ejohnson 02:17 PM Isovue 370 - 200ml,1 Bottle(s) used. ejohnson 02:17 PM NIBP STAT measurement started. 02:17 PM Site status No bleeding/hematoma - Rt Wrist as reported by Tabby Stephen RT (R) at 14:17 ejohnson 02:17 PM Sign out completed: Radiation Dose 1019.75 mGy Fluoro Time: 6.8 Isovue 370 - 200ml contrast 103 ml given by Chadd Crooks MD. Complications: NoneCardiac Rehab Consult needed: YesConfirmed administered medications: Yes ejohnson 02:17 PM Arterial sheath pulled, Vasc Band closure device used and was Successful S/N. ejohnson 02:17 PM HR=74 bpm, NIBP=78/35 mmhg, SpO2=90 %, Resp=41 B/min 02:18 PM 10 ml air in Vasc Band. ejohnson 02:18 PM HR=74 bpm, NIBP=72/34 mmhg, SpO2=91 %, Resp=13 B/min 02:19 PM NIBP STAT measurement started. 02:19 PM HR=76 bpm, NIBP=76/35 mmhg, SpO2=92.0 %, Resp=19 B/min 02:20 PM NIBP STAT measurement started. 02:21 PM HR=73 bpm, NIBP=78/41 mmhg, SpO2=92.0 %, Resp=18 B/min, Comment=SR 02:22 PM Time: 14:22 Dopamine 7.5 mcg/kg/min Intravenous Given by Maverick Mathew RN Coleman pump ejohnson 02:23 PM HR=71 bpm, NIBP=80/42 mmhg, SpO2=91.0 %, Resp=18 B/min, Comment=SR 02:28 PM NIBP STAT measurement started. 02:28 PM Patient out of room: 14:28 ejohnson 02:28 PM Post Blood Pressure 85/50 ejohnson 02:28 PM no labns are available at this time ejohnson 02:28 PM HR=72 bpm, NIBP=85/50 mmhg, SpO2=91 %, Resp=24 B/min 02:28 PM Report given to Saida MCKNIGHT Pt taken to ICU Room #1. 14:28 ejohnson 02:30 PM Time: 14:30 Dopamine 10 mcg/kg/min Intravenous Given by Maverick Mathew RN ejohnskaz 02:30 PM Coronary Dominance: right ejohnson 02:31 PM Lesion found in Proximal LAD. Pre Stenosis: 60 Pre SHANA Flow: 3: Complete and Brisk Flow/Perfusion ejohnson 02:31 PM Lesion found in Proximal RCA. Pre Stenosis: 20 Pre SHANA Flow: 3: Complete and Brisk Flow/Perfusion ejohnson 02:31 PM Lesion found in Mid RCA. Pre Stenosis: 100 Pre SHANA Flow: 0: No Flow/No perfusion ejohnson 02:32 PM Lesion found in Distal RCA. Pre Stenosis: 20 Pre SHANA Flow: 3: Complete and Brisk Flow/Perfusion ejohnson 02:32 PM Lesion found in Mid LAD. Pre Stenosis: 70 Pre SHANA Flow: 3: Complete and Brisk Flow/Perfusion ejohnson 02:33 PM Vitals capture stopped. 02:34 PM Lesion found in Distal LAD. Pre Stenosis: 20 Pre SHANA Flow: 3: Complete and Brisk Flow/Perfusion ejohnson 02:34 PM Lesion found in Proximal Circumflex. Pre Stenosis: 30 Pre SHANA Flow: 3: Complete and Brisk Flow/Perfusion ejohnson 02:35 PM Lesion found in 1st Marginal. Pre Stenosis: 20 Pre SHANA Flow: 3: Complete and Brisk Flow/Perfusion ejohnson 02:35 PM Proximal Left Anterior Descending Coronary Artery with 60% stenosis. ejohnson 02:36 PM Mid/Distal Left Anterior Descending Coronary Artery and diagonal branches with 75% stenosis. ejohnson 02:37 PM Circumflex, Obtuse Marginal, Left Posterior Descending, and Left Posterolateral Coronary Arteries with 20 % stenosis. ejohnson 02:45 PM Post ECG NSR ejohnson 02:47 PM Information taught Cardiac Cath, PCI, and Vasc Band ejohnson 02:47 PM Education needs Procedure, Plan of Care, and Responsibilities of Patient in Care ejohnson 02:47 PM Learning barriers :None ejohnson 02:47 PM Education Methods Verbal ejohnson 02:47 PM Education evaluation Able to repeat information ejohnson 02:48 PM Plavix, Effient or Brilinta given Yes ejohnson 02:48 PM Delay to floor No ejohnson 02:48 PM Family placed in consult room. ejohnson 02:48 PM Complications: None ejohnson Equipment Used Size Length Diameter Item Category ACT Other Terumo Glidesheath sheath Runway Guide catheter Inflation kit Other BMW Guidewire Emerge PTCA Dilatation Catheter Monorail Balloon Coleman pump Other Promus Element Plus Rx Drug Eluting Stent Emerge PTCA Dilatation Catheter Monorail Balloon Isovue 370- 200ml Contrast Vasc Band Manual Compression Manual compression Complications Complication None Hemodynamics Pressures Site Systolic/A Wave Diastolic/V Wave Mean LV 114 11 12 LV 111 11 13 AO 103 87 95 AO 120 80 98 AO 70 48 55 Post Procedure Information Blood Pressure: 88/38 mmHg Rhythm: NSR Post procedural instructions were given Closure Device Time Device Success/Fail 06/07/2017 2:17:00 PM Mechanical Compression Site Checks Time Location Status Staff Sheath In? Note 02:17 PM Rt Wrist No bleeding/hematoma Tabby Stephen RT (R) Pulses Time Site Pre-Procedure Post-Procedure Note 06/07/2017 1:28:00 PM Rt Radial 2+ 06/07/2017 2:30:00 PM Rt Radial 1+ Updated by Bhavana Bush RN on 06/09/2017 2:22:50 PM Bhavana Bush RN electronically signed on 06/09/2017 2:23:36 PM with status of Final
--- NOTE | 2017-06-09 17:20 | Electrocardiograph Report ---
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
--- NOTE | 2017-06-09 17:20 | Electrocardiograph Report ---
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
== END 2017-06-08 13:47 | disposition home or self-care (01) | DRG 247 ==
LOC: CARSER 13:31 → ICNU 14:14
PROVIDERS: ADMIT Internal Medicine; ATTEND Internal Medicine